=== PATIENT | male | born 1950 | race Caucasian/White ===

== ENCOUNTER 2024-08-10 05:19 | Emergency (ER) | payer OTHER ==
[~2024-08-10] VITALS: Ht 180.3 cm; Wt 99.0 kg
[2024-08-10 06:14] LABS: Basophils # (auto) 0.1 10 ^3/uL (0-0.2); Basophils % (auto) 0.5 % (0.0-2.0); Eosinophils # (auto) 0.1 10 ^3/uL (0-0.8); Hematocrit 44.3 % (41.0-53.0); Hemoglobin 14.3 g/dL (13.5-17.5); Lymphocytes # (auto) 2.3 10 ^3/uL (0.4-5.4); Lymphocytes % (auto) 19.5 % (10.0-50.0); Mean Corpuscular Hemoglobin 29.9 pg (28.0-32.0); Mean Corpuscular Hgb Conc. 32.2 g/dL (32.0-36.0); Mean Corpuscular Volume 92.9 fL (80.0-100.0); Monocytes % (auto) 8.2 % (0.0-12.0); Neutrophils # (auto) 8.2 10 ^3/uL (1.6-8.6); Neutrophils % (auto) 70.8 % (37.0-80.0); Platelet Count (auto) 203 10^3/uL (140-450); Red Blood Cells 4.77 10^6/uL (4.5-5.90); White Blood Cell 11.6 10^3/uL (4.4-10.8)
--- NOTE | 2024-08-10 06:18 | DVH ---
EXAM: XY CHEST PORTABLE HISTORY: CHEST PAIN COMPARISON: None TECHNIQUE: Portable AP view of the chest was performed. FINDINGS: No pneumothorax, consolidative infiltrates, or pulmonary edema. There is mild central peribronchial t hickening. The heart is not enlarged. IMPRESSION: Mild reactive airways disease. The lungs are otherwise clear.
[2024-08-10 06:26] VITALS: PULSE 88; RESP 16; O2SAT 98
--- NOTE | 2024-08-10 06:53 | ED.PDOC ---
HPI Comments 73 year old male brought in by EMS presents to the ED with a chief complaint of chest pain onset today around 3 hours ago. Patient states he had a sandwich for dinner and when he began experiencing chest pain, he believed it might be indigestion but noticed pain was not improving. He also states he began experiencing shortness of breath prior to EMS arrival. He describes chest pain as a pressure sensation and rates pain 7/10. PMHx of HTN, DM. Denies dizziness, headache, blurry vision, nausea, vomiting, diarrhea, fever. No other symptoms or modifying factors present at this time. Chief Complaint: Chest Pain Time Seen by MD: 06:41 Reviewed Notes: Medications, Allergies Allergies: Coded Allergies: NO KNOWN ALLERGIES (Unverified , 08/10/24) Information Source: Patient, Emergency Med Personnel, Spouse Mode of Arrival: EMS Severity: Moderate Timing: Hours Duration: Since onset Prehospital treatment: None Location: Chest (L) Radiation: No Radiation Quality: Pressure Onset: At Rest Cardiac Risk Factors: HTN, Diabetes PE Risk Factors: None History of: Aspirin Modifying Factors: Nothing Associated Signs and Symptoms: SOB Past Medical History PAST MEDICAL HISTORY: DM, HTN Family History Family History: Reviewed,noncontributory to illness, No family hx of Cancer, No family hx of DM, No family hx of Heart eleonora, No family hx of HTN, No family hx ofKidney eleonora, No family hx of Liver eleonora, No family hx of Lung eleonora, No family hx of Stroke Social History Smoker: Non-Smoker Alcohol: Occasionally Drugs: Denies Drug Use Lives In: Home Constitutional: denies: chills, diaphoresis, fatigue, fever, malaise, sweats, weakness, others EENTM: denies: blurred vision, double vision, ear bleeding, ear discharge, ear drainage, ear pain, ear ringing, eye pain, eye redness, hearing loss, mouth pain, mouth swelling, nasal discharge, nose bleeding, nose congestion, nose pain, photophobia, tearing, throat pain, throat swelling, voice changes, others Respiratory: reports: shortness of breath; denies: cough, hemoptysis, orthopnea, SOB at rest, SOB with excertion, stridor, wheezing, others Cardiovascular: reports: chest pain; denies: dizzy spells, diaphoresis, Dyspnea on exertion, edema, irregular heart beat, left arm pain, lightheadedness, palpitations, PND, syncope, others Gastrointestinal: denies: abdomen distended, abdominal pain, blood streaked bowels, constipated, diarrhea, dysphagia, difficulty swallowing, hematemesis, melena, nausea, poor appetite, poor fluid intake, rectal bleeding, rectal pain, vomiting, others Genitourinary: denies: burning, dysuria, flank pain, frequency, hematuria, incontinence, penile discharge, penile sore, pain, testicle pain, testicle swelling, urgency, others Neurological: denies: dizziness, fainting, headache, left sided numbness, left sided weakness, numbness, paresthesia, pre-existing deficit, right sided numbness, right sided weakness, seizure, speech problems, tingling, tremors, weakness, others Musculoskeletal: denies: back pain, gout, joint pain, joint swelling, muscle pain, muscle stiffness, neck pain, others Integumetry: denies: bruises, change in color, change in hair/nails, dryness, laceration, lesions, lumps, rash, wounds, others Allergic/Immunocompromised: denies: Difficulty Healing, Frequent Infections, Hives, Itching, others Hematologic/Lymphatic: denies: anemia, blood clots, easy bleeding, easy bruising, swollen glands, others Endocrine: denies: excessive hunger, excessive sweating, excessive thirst, excessive urination, flushing, intolerance to cold, intolerance to heat, unexplained weight gain, unexplained weight loss, others Psychiatric: denies: anxiety, bipolar disorder, depression, hopeless, panic disorder, schizophrenia, sleepless, suicidal, others All Other Systems: Reviewed and Negative Physical Exam General Appearance: No Apparent Distress, Normal HEENT: Normal ENT Inspection, PERRL/EOMI, Pharynx Normal, TMs Normal Neck: Full Range of Motion, Non-Tender, Normal, Normal Inspection Respiratory: Chest Non-Tender, Lungs Clear, No Accessory Muscle Use, No Respiratory Distress, Normal Breath Sounds Cardiovascular: No Edema, No JVD, No Murmur, No Gallop, Normal Peripheral Pulses, Regular Rate/Rhythm Breast Exam: Deferred Gastrointestinal: No Organomegaly, Non Tender, No Pulsatile Mass, Normal Bowel Sounds, Soft Genitalia: Deferred Pelvic: Deferred Rectal: Deferred Extremities: No calf tenderness, Normal capillary refill, Normal inspection, Normal range of motion, Non-tender, No pedal edema Musculoskeletal : Apperance: Normal Neurologic: Alert, slasher II-XII nml as Tested, No Motor Deficits, Normal Affect, Normal Mood, No Sensory Deficits Cerebellar Function: Normal Reflexes: Normal Skin: Dry, Normal Color, Warm Peripheral Pulses: 1+ carotid (R), 1+ carotid (L) Lymphatic: No Adenopathy EKG EKG : Pulse Rate (adult): 75 [place]: Normal Cardiac Rhythm: NSR, PAC's Was a procedure done? Was a procedure done?: No CP Differential Dx Differential Diagnosis: Angina, Anxiety / Panic Attack, Electrolyte Disorder, Heart Failure, MT, Renal Failure Differential Diagnosis: HTN Essential Differential Diagnosis: Angina, Chest Wall Pain, Costochondritis, Esophageal reflux/spasm, Myocardial Infarction, Pneumonia X-Ray, Labs, Meds, VS Vital Signs Date Time Temp Pulse Resp B/P (MAP) Pulse Ox O2 Delivery O2 Flow Rate FiO2 08/10/24 11:30 90 15 139/68 (91) 92 08/10/24 09:30 90 20 110/61 (77) 95 08/10/24 08:00 91 08/10/24 07:30 83 14 96 Nasal Cannula* 2 28 08/10/24 07:30 98.2 83 14 133/59 (83) 96 98.2 08/10/24 07:01 83 13 133/59 (83) 97 08/10/24 06:56 75 08/10/24 06:36 82 08/10/24 06:26 88 16 98 Nasal Cannula* 2 28 08/10/24 06:00 97.9 82 16 130/57 (81) 96 97.9 08/10/24 05:29 75 08/10/24 05:19 98.4 80 18 143/71 (95) 94 Lab Test 08/10/24 07:20 08/10/24 05:32 Range/Units Troponin I High Sensitivity < 3 L < 3 L </=54 ng/L White Blood Count 11.6 H 4.4-10.8 10^3/uL Red Blood Count 4.77 4.5-5.90 10^6/uL Hemoglobin 14.3 13.5-17.5 g/dL Hematocrit 44.3 41.0-53.0 % Mean Corpuscular Volume 92.9 80.0-100.0 fL Mean Corpuscular Hemoglobin 29.9 28.0-32.0 pg Mean Corpuscular Hemoglobin Concent 32.2 32.0-36.0 g/dL Red Cell Distribution Width 13.0 11.8-14.3 % Platelet Count 203 140-450 10^3/uL Mean Platelet Volume 9.1 6.9-10.8 fL Neutrophils (%) (Auto) 70.8 37.0-80.0 % Lymphocytes (%) (Auto) 19.5 10.0-50.0 % Monocytes (%) (Auto) 8.2 0.0-12.0 % Eosinophils (%) (Auto) 1.0 0.0-7.0 % Basophils (%) (Auto) 0.5 0.0-2.0 % Neutrophils # (Auto) 8.2 1.6-8.6 10 ^3/uL Lymphocytes # (Auto) 2.3 0.4-5.4 10 ^3/uL Monocytes # (Auto) 1.0 0-1.3 10 ^3/uL Eosinophils # (Auto) 0.1 0-0.8 10 ^3/uL Basophils # (Auto) 0.1 0-0.2 10 ^3/uL Nucleated Red Blood Cells 0.0 % Sodium Level 139 136-145 mmol/L Potassium Level 4.3 3.5-5.1 mmol/L Chloride Level 106 98-107 mmol/L Carbon Dioxide Level 25 20-31 mmol/L Anion Gap 8 5-15 Blood Urea Nitrogen 18 9-23 mg/dL Creatinine 1.67 H 0.700-1.30 mg/dL Glomerular Filtration Rate Calc 42 >90 mL/min BUN/Creatinine Ratio 10.8 10.0-20.0 Serum Glucose 141 H 74-106 mg/dL Calcium Level 10.1 8.7-10.4 mg/dL Total Bilirubin 0.5 0.2-1.0 mg/dL Aspartate Amino Transferase (AST) 18 13-40 U/L Alanine Aminotransferase (ALT) 29 7-40 U/L Alkaline Phosphatase 56 46-116 U/L B-Type Natriuretic Peptide 17.98 0-100 pg/mL Total Protein 7.1 5.7-8.2 g/dL Albumin 4.6 3.2-4.8 g/dL [facility] [id number] [facility] [id number] Ph: [phone] DIAGNOSTIC IMAGING Diagnostic Imaging Report : [id number] Signed PATIENT: EJ EMERSON ACCT: [id number] UNIT: [id number] : 1950 LOC: ER ROOM / BED: / AGE / SEX: 73 / M ADM STATUS: REG ER SERVICE [id number] ORDERING PHYSICIAN: MILTON MEHTA MD PROCEDURE(s): CXRP - CHEST PORTABLE REASON: CHEST PAIN ORDER NUMBER(s): [id number], ACCESSION NUMBER(s): [id number] EXAM: XY CHEST PORTABLE HISTORY: CHEST PAIN COMPARISON: None TECHNIQUE: Portable AP view of the chest was performed. FINDINGS: No pneumothorax, consolidative infiltrates, or pulmonary edema. There is mild central peribronchial thickening. The heart is not enlarged. IMPRESSION: Mild reactive airways disease. The lungs are otherwise clear. ATED BY: ULICES MARTINEZ MD DICTATED DATE/TIME: 08/10/24614 SIGNED BY: ULICES MARTINEZ MD SIGNED DATE/TIME: 08/10/24614 CC: X-Ray, Labs, Meds, VS Comment Course in the emergency department eventful patient came in complaining of chest pain and shortness of breath for sudden onset Blood pressure 143/71 Chest x-ray normal EKG shows sinus normal sinus rhythm at 75 CBC [id number] with 70.8% neutrophils H&H normal CMP negative blood sugar 141 BNP 17.9 Troponin three and three GFR 42 Patient will be discharged home to follow up his PCP Time of 1ST Reevaluation: 07:11 Reevaluation 1ST: Unchanged Patient Education/Counseling: Diagnosis, Treatment, Prognosis Family Education/Counseling: Diagnosis, Treatment, Prognosis Additional Information - The following tests were ordered, and results were reviewed by me: EKG -x3, CBC, XY CHEST, CMP, BNP, TROP -x3 - Additional information was gathered from interviewing the following bryant dent Historian: , EMS - I reviewed and agreed with the following test results read by other provider: MICHEAL CHEST - I discussed treatments and results with medical personnel and: patient, Departure 1 Departure Time of Disposition: 11:48 Impression: Primary Impression: Chest pain Qualified Codes: I20.89 - Other forms of angina pectoris Additional Impressions: Diabetes mellitus Qualified Codes: E11.9 - Type 2 diabetes mellitus without complications CKD (chronic kidney disease) stage 3, GFR 30-59 ml/min Qualified Codes: N18.32 - Chronic kidney disease, stage 3b Ruled Out: Pneumonia Disposition: HOME / SELF CARE / HOMELESS Condition: Fair Additional Instructions: Continue same management and follow up with your PCP as soon as possible Discharged With: Self Critical Care Note Critical Care Time?: No Stability Stability form required: No Heart Score Heart Score: Heart Score Response (Comments) Value History Moderate Suspicious 1 EKG Normal 0 Age >65 2 Risk Factors 1 or 2 risk factors 1 Troponin Normal limit 0 Total 4 I personally scribed for SYLVESTER CARLIN MD ([email or web address]) on 08/10/24 at 06:53. Electronically submitted by Marycruz Sharma ([email or web address]). I personally scribed for SYLVESTER CARLIN MD ([email or web address]) on 08/10/24 at 07:27. Electronically submitted by Marycruz Sharma ([email or web address]). I personally scribed for SYLVESTER CARLIN MD ([email or web address]) on 08/10/24 at 07:29. Electronically submitted by Marycruz Sharma ([email or web address]). SYLVESTER CARLIN MD Aug 10, 2024 06:53
[2024-08-10 06:56] LABS: Alanine Aminotransferase 29 U/L (7-40); Alkaline Phosphatase 56 U/L (46-116); Anion Gap 8 (5-15); BUN/Creatinine Ratio 10.8 (10.0-20.0); Blood Urea Nitrogen 18 mg/dL (9-23); Calcium 10.1 mg/dL (8.7-10.4); Carbon Dioxide 25 mmol/L (20-31); Chloride 106 mmol/L (98-107); Potassium 4.3 mmol/L (3.5-5.1); Sodium 139 mmol/L (136-145)
[2024-08-10 06:57] LABS: Albumin 4.6 g/dL (3.2-4.8); Aspartate Aminotransferase 18 U/L (13-40); Bilirubin, Total 0.5 mg/dL (0.2-1.0); Total Protein 7.1 g/dL (5.7-8.2)
[2024-08-10 07:01] LABS: Glucose 141 mg/dL (74-106)
[2024-08-10 07:30] VITALS: PULSE 83; RESP 14; TEMP 98.2; O2SAT 96
[2024-08-10 11:30] VITALS: BP 139/68; PULSE 90; RESP 15; O2SAT 92
--- NOTE | 2024-08-12 11:22 | ECG ---
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
--- NOTE | 2024-08-12 11:22 | ECG ---
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
== END 2024-08-10 12:20 | disposition home or self-care (01) ==
LOC: EDBD 05:19 → ER 05:19
DX: E11.22 Type 2 diabetes mellitus with diabetic chronic kidney disease (principal); I12.9 Hypertensive chronic kidney disease with stage 1 through stage 4 chronic kidney disease, or unspecified chronic kidney disease; N18.30 Chronic kidney disease, stage 3 unspecified; R07.89 Other chest pain
CPT/HCPCS: 36415; 71045; 80053; 83880; 84484; 85025; 93005